=== PATIENT | male | born 1960 | race Caucasian/White ===

== ENCOUNTER 2024-02-15 13:49 | Emergency (ER) | payer OTHER, SELFPAY ==
[2024-02-15 13:52] VITALS: BP 160/85
[2024-02-15 14:58] VITALS: BP 163/80
[2024-02-15 15:01] VITALS: BMI 29.0
[2024-02-15 15:15] LABS: % Basophils 0.4 % (0-2); % Eosinophils 0.6 % (0-6); % Immature Granulocytes 0.2 % (0-0.5); % Monocytes 6.6 % (1.7-9.3); % Neutrophils 76.2 % (42.2-75.2); Absolute Eosinophils 0.1 10^3/uL (0-0.7); Absolute Lymphocytes 1.3 10^3/uL (1.2-3.4); Absolute Monocytes 0.5 10^3/uL (0.1-0.6); Absolute Neutrophils 6.3 10^3/uL (1.4-6.5); Hematocrit 38.9 % (39.0-52.0); Hemoglobin 13.8 g/dL (13.0-18.0); Mean Corp Hgb Conc. 35.5 g/dL (33.0-37.0); Mean Corpuscular Hgb 31.2 pg (27.0-31.0); Mean Platelet Volume 10.4 fL (7.4-10.4); Nucleated Red Blood Cells % 0 % (-); Platelet Count 181 10^3/uL (130-400); Red Blood Cell Count 4.42 10^6/uL (4.70-6.10); Red Cell Dist. Width 12.8 % (11.5-14.5); White Blood Cell Count 8.2 10^3/uL (4.8-10.8)
--- NOTE | 2024-02-15 15:29 | CON.NEURO ---
Neuro Assessment/Plan
Assessment
IMPRESSIONS/RECOMMENDATIONS:
Abrupt change in
Will continue to follow patient. Thank you.
Consultation
Order
Date of Consultation: 02/15/24
Requesting Provider: Emergency department provider
Reason for Consult: Cognitive difficulties
Subjective/Objective
Subjective Data
Date of Service: February 15, 2024
Objective Data
Vital Signs
Temp Pulse Resp BP Pulse Ox
37.1 C 61 18 163/80 100
02/15/24 13:52 02/15/24 15:15 02/15/24 13:52 02/15/24 14:58 02/15/24 13:52
Lab Results
02/15/24 14:59
Patient Allergies
No Known Allergies Allergy (Unverified 02/15/24 13:57)
Medications
-
Home Medications
�Medication �Instructions �Recorded
acetaminophen 325 mg tablet 650 mg PO DAILY 02/15/24
(Tylenol)
alprazolam 0.25 mg tablet (Xanax) 0.25 mg PO TIDPRN PRN anxiety 02/15/24
diphenhydramine 25 2 tab PO HS 02/15/24
mg-acetaminophen 500 mg tablet
(Tylenol PM Extra Strength)
escitalopram oxalate 20 mg tablet 20 mg PO HS 02/15/24
(Lexapro)
lisinopril 5 mg tablet 5 mg PO QPM 02/15/24
loratadine 10 mg tablet (Claritin) 10 mg PO DAILY 02/15/24
psyllium husk 0.4 gram capsule 2.4 g PO QPM 02/15/24
(Metamucil)
therapeutic multivitamin 1 tab PO DAILY 02/15/24
Past History
Past History
ED Past Medical History: HTN, Psychiatric (Generalized anxiety disorder) and Other (COVID 19 infection in 2020 right, moderate left carpal tunnel syndrome in 2017)
[2024-02-15 15:34] LABS: ALT (SGPT) 32 U/L (0-50); AST (SGOT) 31 U/L (17-59); Albumin 4.6 g/dl (3.5-5.0); Alkaline Phosphatase 51 U/L (38-126); Blood Urea Nitrogen 20 mg/dl (9-20); Calcium 9.6 mg/dl (8.4-10.2); Carbon Dioxide 27 mmol/L (22-30); Chloride 104 mmol/L (98-107); Estimated Creatinine Clearance 105 ml/min; Glucose 103 mg/dl (70-99); Sodium 140 mmol/L (135-145); Total Bilirubin 0.7 mg/dl (0.2-1.3); Total Protein 7.4 g/dl (6.3-8.2); eGFR > 60.00
--- NOTE | 2024-02-15 16:08 | ED.GENMED ---
History of Present Illness
General
Chief Complaint: Change in Mental Status
Source: patient and family (Sons)
Exam Limitations: none
Time Seen by Provider: 02/15/24 14:20
Nursing documentation reviewed up to this point in time: agreed with
Travel History
Have you had any contact with someone who has COVID-19?: No
Do you have any symptoms of coronavirus? Fever > 100 degrees, chills, cough, shortness of breath, sore throat, loss of taste or smell, muscle aches, or headache?: No
History of Present Illness
History of Present Illness:
64-year-old male with a past medical history of hypertension, anxiety who presents to the emergency room with his sons for evaluation of headaches and behavioral changes. Patient reports that he has had headaches ongoing for the past 2 months�he
reports daily intermittent headaches that usually last for a few hours at a time. He reports location of the headache is variable sometimes will be pressure sensation behind his eyes sometimes will be bitemporal. He says that over the past few
weeks he has also noticed associated behavioral changes�has had confusion, difficulty navigating�primary trigger for presentation today was that patient was driving home from work and could not find his home while he was driving. His family was
very concerned and finally brought him to the emergency room for assessment. He denies any nausea or vomiting. He denies any change in his vision. Denies any speech issues. Denies any weakness or numbness in his extremities. Denies any neck
pain or stiffness. Denies any recent illness. Denies any trauma to the head.
Past History
Past History
ED Past Medical History: HTN, Psychiatric (Generalized anxiety disorder) and Other (COVID 19 infection in 2020 right, moderate left carpal tunnel syndrome in 2017)
Review of Systems
Review of Systems
All Other Systems: ROS reviewed and negative except as documented in HPI and ROS
Constitutional: Denies fever or chills
Respiratory: Denies cough or trouble breathing
Cardiac: Denies chest pain or palpitations
ABD/GI: Denies abdominal pain, nausea or vomiting
: Denies flank pain
Musculoskeletal: Denies neck pain or back pain
Neurological: Reports headache and other (Behavioral change/confusion); Denies dizzy, weakness or numbness
Phy Exam
Physical Exam
Physical Exam:
General: Awake, alert, oriented x3; no acute distress
Head: Normocephalic, atraumatic
Eyes: Conjunctiva normal, EOMI, pupils equal round reactive to light bilateral
Throat: Airway intact, handling secretions
Neck: Trachea midline, supple without meningismus
Lungs: Clear to auscultation bilaterally, no wheezing, rales, rhonchi
Heart: Regular rate and rhythm, no murmurs, gallops, or rubs
Abd: Soft, non distended, nontender
Neuro: Cranial nerves intact 2 through 12, speech fluent no dysarthria or aphasia, no limb ataxia, motor and sensory function intact in all extremities, ambulatory with steady gait
Skin: no rash
Extremities: Warm and well-perfused with no edema and equal pulses
Scores
Heart Failure Risk
Heart Failure Risk Score: Not Applicable
Heart Score for Chest Pain Patients
STEMI patient?: Not applicable
Withdrawal Assessment of Alcohol
Withdrawal Assessment Completed?: Not applicable
Course
Orders/Labs/Results
Orders:
Orders
02/15/24 14:29
CT Head W/o Iv Contrast Urgent
Comment:
Reason For Exam: headache, confusion
02/15/24 14:59
Alcohol Urgent
Complete Blood Count/With Diff Urgent
Comprehensive Metabolic Panel Urgent
02/15/24 15:15
NEUROLOGY CONSULT Urgent
Consulting Provider: Ray Ge
Was physician already notified: Yes
02/15/24 15:17
Drug Screen, Urine [Urine Drug Abuse Screen] Urgent
02/15/24 15:31
Urine Drug Abuse Screen Urgent
02/15/24 16:18
Dexamethasone Sod Phosphate [Decadron] 4 mg IV NOW STA
Levetiracetam Injectable [Keppra] 500 mg IV NOW STA
Abnormal Lab Results
02/15/24
14:59
RBC 4.42 L 10^6/uL
(4.70-6.10)
Hct 38.9 L %
(39.0-52.0)
MCH 31.2 H pg
(27.0-31.0)
Neutrophils % 76.2 H %
(42.2-75.2)
Lymphocytes % 16.0 L %
(20.5-51.1)
Glucose 103 H mg/dl
(70-99)
02/15/24 14:59
02/15/24 14:59
Vital Signs
Initial and Last Documented VS:
Initial Vital Signs
Temp Pulse Resp BP Pulse Ox
37.1 C 59 18 160/85 100
02/15/24 13:52 02/15/24 13:52 02/15/24 13:52 02/15/24 13:52 02/15/24 13:52
Last Documented Vital Signs
Temp Pulse Resp BP Pulse Ox
37.1 C 61 18 163/80 100
02/15/24 13:52 02/15/24 15:15 02/15/24 13:52 02/15/24 14:58 02/15/24 13:52
MDM/Problems Addressed
Differential Diagnosis Includes:
Dementia, brain mass, brain hemorrhage, stroke, drug/alcohol abuse
MDM/Problems Addressed:
64-year-old male presents for evaluation of headaches and behavioral changes ongoing for at least the past few weeks. He is hypertensive but otherwise normal vitals. Physical exam as above. Will check basic labs and CT head to start. Case
discussed with neurology to evaluate.
Initial labs reviewed: CBC and CMP unremarkable. Awaiting CT head.
CT head reviewed by me shows brain mass with surrounding edema and small amount of midline shift. Discussed with patient and his family�they are requesting transfer to [place] for further care. Will discuss with [place] transfer center.
Discussed with neurology at the bedside.
Case discussed with neurosurgery at [place]�patient accepted for transfer to [facility] from neuroscience by Dr. Ford. Will monitor pending transport.
*Radiology
Radiology exam reviewed: preliminary read by ED provider and radiology read reviewed
*Pulse Oximetry
Patient hypoxic: no
*Critical Care Note
Total Time (30-74mins, 75-104mins- exclusive of procedures): Not Applicable
Data Reviewed
Source: patient and family
Patient Management
Discussion with other providers: Spray Worker (Discussed with neurology; discussed with neurosurgery at [place])
Escalation/DeEscalation of care consider admission/obs:
Admission indicated�transfer to tertiary center
ED Attending Note
-
Portions of this chart may have been created with voice recognition software.� Occasional wrong word or��sound alike� substitutions may have occurred due to the inherent limitations of voice recognition software.
Discharge Plan
Departure
Patient Disposition: Acute Care Hospital
Date of Disposition: 02/15/24
Time of Disposition: 16:05
Discharge Problem:
Brain mass
Prescriptions:
No Action
acetaminophen [Tylenol] 325 mg Tablet
650 mg PO DAILY
Theragen Tablet
1 tab PO DAILY
alprazolam [Xanax] 0.25 mg Tablet
0.25 mg PO TIDPRN PRN (Reason: anxiety)
lisinopril 5 mg Tablet
5 mg PO QPM
Tylenol PM Extra Strength 25-500 mg Tablet
2 tab PO HS
loratadine [Claritin] 10 mg Tablet
10 mg PO DAILY
escitalopram oxalate [Lexapro] 20 mg Tablet
20 mg PO HS
psyllium husk [Metamucil] 0.4 gram Capsule
2.4 g PO QPM
Referrals:
Berto Sams MD [Family Provider] -
Hospital Transfer
Other hospital: [facility]
I certify that the patient requires transfer: Yes
Discussed case with accepting physician: Dr. Ford
Reason for transfer: higher level of care and availability of service
Interventions
Interventions:
*Risk Screen - Suicide Last Done: 02/15/24 15:01
*General Assessment Last Done: 02/15/24 13:52
*Neglect/Abuse Screening Last Done: 02/15/24 15:01
ED- Fall Risk Assessment Last Done: 02/15/24 15:01
*ED COVID-19 Vaccine History Last Done: 02/15/24 13:52
ED- Neurological Assessment Last Done: 02/15/24 15:01
ED- Cardiac Assessment Last Done: 02/15/24 15:01
ED Swallowing Screen Last Done: 02/15/24 15:02
Discharge Date and Time
Print Language: POLISH
[2024-02-15] MEDS: DECADRON 4 MG IV (16:31)
[2024-02-15] MEDS: KEPPRA 500 MG IV (16:33)
[2024-02-15 16:34] VITALS: BP 170/92
== END 2024-02-15 17:47 | disposition short-term general hospital (02) ==
LOC: EMR 13:49
PROVIDERS: CONSULT PHYSICIAN Psychiatry & Neurology Neurology; EMERGENCY PHYSICIAN Emergency Medicine; FAMILY PHYSICIAN Family Medicine
DX: G93.9 Disorder of brain, unspecified (principal); I10 Essential (primary) hypertension; F41.9 Anxiety disorder, unspecified; Z86.16 Personal history of COVID-19
CPT/HCPCS: 99285; 96374; 96375; 70450; 80053; 82077; 85025

== ENCOUNTER 2024-10-27 08:33 | Emergency (ER) | payer OTHER, SELFPAY ==
[2024-10-27 08:49] VITALS: BP 134/73
--- NOTE | 2024-10-27 09:19 | ED.GENMED ---
History of Present Illness
General
Chief Complaint: Cold/Flu/URI Symptoms
Time Seen by Provider: 10/27/24 08:57
History of Present Illness
History of Present Illness:
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
for the past 3 days. Has not tolerated any p.o. food or fluids during this time. According to his spouse he does have some baseline memory issues after his surgery however seems more 'out of it' over the past several days. No diarrhea, minimal
coughing or nasal congestion. No recorded fevers.
Past History
Past History
ED Past Medical History: HTN, Psychiatric (Generalized anxiety disorder) and Other (COVID 19 infection in 2020 right, moderate left carpal tunnel syndrome in 2017)
Review of Systems
Review of Systems
Allergies reviewed?: Yes
All Other Systems: ROS reviewed and negative except as documented in HPI and ROS
Phy Exam
Physical Exam
Physical Exam:
GEN: Well appearing, NAD, WDWN
HEENT: Oral mucosa moist, no scleral icterus, no nasal congestion
Cardiac: Regular rate and rhythm, no murmur
Lung: No respiratory distress, no tachypnea, lungs clear to auscultation bilaterally
MSK: No gross deformity or injuries
Skin: Good color, no pallor or jaundice, no rashes
Neuro: AO x3; CN II-XII grossly intact. BUE strength 5/5 in all flores, sensation intact and symmetric. BLE strength 5/5 in all flores, sensation intact and symmetric
Psych: Calm, cooperative
Course
Orders/Labs/Results
Orders:
Orders
10/27/24 09:19
Electrocardiogram (*1) Urgent
Reason for Study: QTc Monitoring
CT Head W/o Iv Contrast Urgent
Comment:
Reason For Exam: confusion
EKG- Treatment ONCE
0.9% Sodium Chloride 1000 ml [Nss] 1,000 ml IV BOLUS
10/27/24 09:41
COVID-19 Antigen Urgent
Source: Nasal Swab
Complete Blood Count/With Diff Urgent
Lipase Urgent
Influenza A+B Rapid Molecular Urgent
ELLEN Source: Nasal Swab
Specimen Description:
10/27/24 11:19
Comprehensive Metabolic Panel Urgent
Abnormal Lab Results
10/27/24 10/27/24
09:41 11:19
MCH 32.4 H pg
(27.0-31.0)
Absolute Lymphs (auto) 0.9 L 10^3/uL
(1.2-3.4)
Absolute Monos (auto) 0.7 H 10^3/uL
(0.1-0.6)
Neutrophils % 76.5 H %
(42.2-75.2)
Lymphocytes % 12.2 L %
(20.5-51.1)
Monocytes % 10.1 H %
(1.7-9.3)
Carbon Dioxide 31 H mmol/L
(22-30)
BUN 33 H mg/dl
(9-20)
Glucose 102 H mg/dl
(70-99)
10/27/24 09:41
10/27/24 11:19
Vital Signs
Initial and Last Documented VS:
Initial Vital Signs
Temp Pulse Resp BP Pulse Ox
97.6 F 75 20 134/73 100
10/27/24 08:49 10/27/24 08:49 10/27/24 08:49 10/27/24 08:49 10/27/24 08:49
Last Documented Vital Signs
Temp Pulse Resp BP Pulse Ox
97.6 F 75 20 130/71 100
10/27/24 08:49 10/27/24 08:49 10/27/24 08:49 10/27/24 12:00 10/27/24 12:19
MDM/Problems Addressed
MDM/Problems Addressed:
Likely self-limited viral syndrome, tolerating p.o. food and fluids at time of discharge, discussed supportive care
*Critical Care Note
Total Time (30-74mins, 75-104mins- exclusive of procedures): Not Applicable
ED Attending Note
-
Portions of this chart may have been created with voice recognition software.� Occasional wrong word or��sound alike� substitutions may have occurred due to the inherent limitations of voice recognition software.
Discharge Plan
Departure
Patient Disposition: Home (Routine Discharge)
Date of Disposition: 10/27/24
Time of Disposition: 12:24
Patient with high blood pressure during this ER visit?: No
Discharge Problem:
Nausea & vomiting
Instructions: Acute Nausea and Vomiting
Prescriptions:
No Action
acetaminophen [Tylenol] 325 mg Tablet
650 mg PO DAILY
Theragen Tablet
1 tab PO DAILY
alprazolam [Xanax] 0.25 mg Tablet
0.25 mg PO TIDPRN PRN (Reason: anxiety)
lisinopril 5 mg Tablet
5 mg PO QPM
Tylenol PM Extra Strength 25-500 mg Tablet
2 tab PO HS
loratadine [Claritin] 10 mg Tablet
10 mg PO DAILY
escitalopram oxalate [Lexapro] 20 mg Tablet
20 mg PO HS
psyllium husk [Metamucil] 0.4 gram Capsule
2.4 g PO QPM
Referrals:
Berto Sams MD [Family Provider] -
Activity Restrictions/Additional Instructions:
Use zofran at home every 4-6 hours as needed
Increase fluids
Interventions
Interventions:
*Risk Screen - Suicide Last Done: 10/27/24 09:07
*General Assessment Last Done: 10/27/24 09:07
*Neglect/Abuse Screening Last Done: 10/27/24 09:07
ED- Fall Risk Assessment Last Done: 10/27/24 13:10
*ED COVID-19 Vaccine History Last Done: 10/27/24 09:07
*Nursing Disposition Last Done: 10/27/24 13:10
ED- Pulmonary Assessment Last Done: 10/27/24 09:07
Discharge Date and Time
Discharge Date/Time: 10/27/24 12:40
Print Language: CZECH
[2024-10-27] MEDS: NSS 1000 IV (09:50)
[2024-10-27 09:58] LABS: % Basophils 0.6 % (0-2); % Eosinophils 0.3 % (0-6); % Immature Granulocytes 0.3 % (0-0.5); % Lymphocytes 12.2 % (20.5-51.1); % Monocytes 10.1 % (1.7-9.3); % Neutrophils 76.5 % (42.2-75.2); Absolute Lymphocytes 0.9 10^3/uL (1.2-3.4); Absolute Monocytes 0.7 10^3/uL (0.1-0.6); Absolute Neutrophils 5.5 10^3/uL (1.4-6.5); Hemoglobin 15.6 g/dL (13.0-18.0); Mean Corp Hgb Conc. 34.7 g/dL (33.0-37.0); Mean Corpuscular Hgb 32.4 pg (27.0-31.0); Mean Corpuscular Volume 93.4 fL (80.0-94.0); Mean Platelet Volume 9.8 fL (7.4-10.4); Nucleated Red Blood Cells % 0 % (-); Platelet Count 150 10^3/uL (130-400); Red Blood Cell Count 4.82 10^6/uL (4.70-6.10); Red Cell Dist. Width 12.8 % (11.5-14.5); White Blood Cell Count 7.1 10^3/uL (4.8-10.8)
[2024-10-27 10:14] LABS: COVID-19 Antigen Negative (Negative)
[2024-10-27 10:17] VITALS: BP 129/72
[2024-10-27 10:37] LABS: Lipase 90 U/L (23-300)
[2024-10-27 11:00] VITALS: BP 138/84
[2024-10-27 11:39] LABS: ALT (SGPT) 28 U/L (0-50); AST (SGOT) 24 U/L (17-59); Albumin 4.3 g/dl (3.5-5.0); Alkaline Phosphatase 41 U/L (38-126); Blood Urea Nitrogen 33 mg/dl (9-20); Carbon Dioxide 31 mmol/L (22-30); Chloride 103 mmol/L (98-107); Glucose 102 mg/dl (70-99); Potassium 4.9 mmol/L (3.5-5.1); Sodium 139 mmol/L (135-145); Total Protein 6.6 g/dl (6.3-8.2); eGFR > 60.00
[2024-10-27 12:00] VITALS: BP 130/71
== END 2024-10-27 12:40 | disposition home or self-care (01) ==
LOC: EMR 08:33
PROVIDERS: Physician Assistant; EMERGENCY PHYSICIAN Emergency Medicine; FAMILY PHYSICIAN Family Medicine
DX: R11.2 Nausea with vomiting, unspecified (principal); R41.0 Disorientation, unspecified; Z11.52 Encounter for screening for COVID-19; C71.9 Malignant neoplasm of brain, unspecified; I10 Essential (primary) hypertension; F41.1 Generalized anxiety disorder; Z86.16 Personal history of COVID-19
CPT/HCPCS: 99284; 96360; 70450; 80053; 83690; 85025; 87502; 87811; 93005